=== PATIENT | female | born 1970 | race Hispanic/Latino ===

== ENCOUNTER 2017-08-11 08:57 | Emergency (ER) | payer BC, OTHER ==
[2017-08-11 09:14] VITALS: BMI 34.0
[2017-08-11 09:16] VITALS: RESP 18; TEMP 98.9
--- NOTE | 2017-08-11 10:09 | ED PDOC ---
Arrival/HPI - General Historian: Patient - General Chief Complaint: Hip Pain Time Seen by Provider: 08/11/17 10:03 - History of Present Illness Narrative History of Present Illness (Text): 08/11/17 10:05 47 y/o female, no significant pmh, nkda, c/o bilateral hip and heel pain x 10 days with no fall or trauma. Pt. stated that she went to hiking a lot with no recent fall or trauma, has bilateral hip and heel pain x 10 days which she was see in the urgent care about 7 days ago with negative lymes Igg/igm and negative cbc/cmp, no radiology test performed for her pain, stated that the pain has not completely resolved but not prescribe with any pain medication, stated that she has no upper extremity pain, no back pain, no fever or chills, no generalized myalgia, no palpitation, no urinary or bowel incontinence or retention, no rash, no dizziness, no change in energy level, no change in appetize, no other medical or psychological complaints, no coughing either. ( Irwin Genao) Past Medical History - Provider Review Nursing Documentation Reviewed: Yes - Infectious Disease Hx of Infectious Diseases: None - Tetanus Immunization Tetanus Immunization: Up to Date - Psychiatric Hx Depression: No Hx Emotional Abuse: No Hx Physical Abuse: No Hx Substance Use: No - Surgical History Hx Orthopedic Surgery: Yes (r heel spur) - Anesthesia Hx Anesthesia: Yes Hx Anesthesia Reactions: No Hx Malignant Hyperthermia: No - Suicidal Assessment Feels Threatened In Home Enviroment: No Family/Social History - Physician Review Nursing Documentation Reviewed: Yes Family/Social History: Unknown Family HX Smoking Status: Never Smoked Hx Alcohol Use: Yes Frequency of alcohol use: Socially Hx Substance Use: No Hx Substance Use Treatment: No Allergies/Home Meds Allergies/Adverse Reactions: Allergies No Known Allergies Allergy (Verified 05/16/13 08:49) Home Medications: Home Meds Medication Instructions Recorded Confirmed Alprazolam [Xanax] 1 tab PO BID PRN 08/11/17 08/11/17 Mefenamic Acid [Ponstel] 1 tab PO DAILY PRN 08/11/17 08/11/17 Review of Systems - Review of Systems Constitutional: absent: Fatigue, Fevers Eyes: absent: Vision Changes ENT: absent: Hearing Changes Respiratory: absent: SOB, Cough Cardiovascular: absent: Chest Pain Gastrointestinal: absent: Abdominal Pain, Nausea, Vomiting Musculoskeletal: Arthralgias, Myalgias. absent: Back Pain, Neck Pain, Joint Swelling Skin: absent: Rash, Pruritis Psychiatric: absent: Anxiety, Depression, Suicidal Ideation Physical Exam Vital Signs Reviewed: Yes Temperature: Afebrile Blood Pressure: Normal Pulse: Regular Respiratory Rate: Normal Appearance: Positive for: Well-Appearing, Non-Toxic, Comfortable Pain Distress: Moderate Mental Status: Positive for: Alert and Oriented X 3 - Systems Exam Head: Present: Atraumatic, Normocephalic Pupils: Present: PERRL Extroacular Muscles: Present: EOMI Conjunctiva: Present: Normal Mouth: Present: Moist Mucous Membranes Neck: Present: Normal Range of Motion Respiratory/Chest: Present: Clear to Auscultation, Good Air Exchange. No: Respiratory Distress, Accessory Muscle Use Cardiovascular: Present: Regular Rate and Rhythm, Normal S1, S2. No: Murmurs Abdomen: No: Tenderness, Distention, Peritoneal Signs Back: Present: Normal Inspection Upper Extremity: Present: Normal Inspection. No: Cyanosis, Edema Lower Extremity: Present: Normal Inspection, NORMAL PULSES, Neurovascularly Intact, Capillary Refill < 2 s, Other (Bilateralo lower extremities: +ttp on the plantar heel aspect on the bilateral feet region, negative loja and sharlene signs, no hip tenderenss or swelling but pain upon lateral movements bilaterally and extension, FROM without limitation, sensation intact, motor 5/5 , +DPPT pulses, no rash and no visible bullseye or target signs, neurovascular intact. ). No: Edema, CALF TENDERNESS, Swelling Neurological: Present: GCS=15, CN II-XII Intact, Speech Normal, Motor Func Grossly Intact, Gait Normal, Memory Normal Skin: Present: Warm, Dry, Normal Color. No: Rashes ( no rash and no visible bullseye or target signs) Psychiatric: Present: Alert, Oriented x 3, Normal Insight, Normal Concentration Vital Signs Temp Pulse Resp BP Pulse Ox 08/11/17 13:48 77 18 126/71 100 08/11/17 09:15 98.9 F 92 H 18 117/83 99 Medical Decision Making - RAD Interpretation Night Shift: Radiologist ED Course and Treatment: 08/11/17 10:09 -labs/ck/lymes igg/igm -bilateral hip/feet xrays -bilateral lower extremities venuous doppler -IVF/toradol/valium -observe and reassess 08/11/17 12:16 -Urine hcg is negative -Labs are non-significant -Bilateral feet xrays: +bilateral calcaneal spur, no fracture or dislocation. -Bilateral hips/pelvis xray: no fracture or dislocation, Mild degenerative changes both hips. -Bilateral lower extremities: as per preliminary, no acute DVT -Pt. feels MUCH BETTER NOW, request to be discharged home, will discharge home. -I checked the [facility] report, she on the benzo but not on any pain medication and her benzo is out by 08/06/2017 with no new prescription, no signs of drug abuse , limited relief with nsaids and tylenol, will give couple days of percocet for acute pain controlled and will see her own pedal assembler. -Pt. is not a crutch candidate -Discharge home with chrissy wrap, cane, percocet for severe pain, motrin for mild to moderate pain, follow up with your own pmd and pedal assembler within 2 days, return to the ER for any new or worsening signs or symptoms, follow up the lymes test as well in 3-4 days. (Irwin Genao) - Lab Interpretations Lab Results: 08/11/17 10:45 08/11/17 10:45 Lab Results 08/11/17 10:45: WBC 7.9, RBC 4.25, Hgb 12.3, Hct 36.5, MCV 85.9, MCH 28.9, MCHC 33.7, RDW 13.3, Plt Count 242, MPV 10.4, Gran % 63.0, Lymph % (Auto) 26.5, Lawrence % (Auto) 7.7 H, Eos % (Auto) 2.5, Baso % (Auto) 0.3, Gran # 4.98, Lymph # (Auto ) 2.1, Lawrence # (Auto) 0.6, Eos # (Auto) 0.2, Baso # (Auto) 0.02 08/11/17 10:45: Sodium 143, Potassium 4.2, Chloride 104, Carbon Dioxide 25, Anion Gap 18, BUN 11, Creatinine 0.7, Est GFR ( Amer) > 60, Est GFR (Non- Af Amer) > 60, Random Glucose 103, Calcium 9.6, Total Bilirubin 0.6, AST 22, ALT 24, Alkaline Phosphatase 55, Total Creatine Kinase 76, Total Protein 7.7, Albumin 4.3, Globulin 3.4, Albumin/Globulin Ratio 1.3 - RAD Interpretation Radiology Orders: 08/11/17 10:03 FOOT 3 VIEWS BI [RAD] Stat Hip Bilateral [HIP MIN 3V W/ PELVIS AVERY] [RAD] Stat 08/11/17 10:10 DUPLEX LOWER EXTRM VEIN BILAT [US] Stat Bilateral feet: PROCEDURE: Bilateral Feet Radiographs. HISTORY: bilateral feet pain COMPARISON: None. FINDINGS: BONES: Right Foot: Normal. No fracture. Left Foot: Normal. No fracture. Left plantar calcaneal spur JOINTS: Right Foot: Normal. No osteoarthritis. Left Foot: Normal. No osteoarthritis. SOFT TISSUES: Right Foot: Normal. Left Foot: Normal. OTHER FINDINGS: None. IMPRESSION: Left plantar calcaneal spur Bilateral hips/pelvis: PROCEDURE: HISTORY: bilateral pain COMPARISON: None TECHNIQUE: AP view of the pelvis and applicable frog leg views obtained. FINDINGS: Bilateral mild superolateral hip joint space narrowing with mild bilateral superolateral acetabular spurring present. No fracture or dislocation. No lytic lesion. Bilateral bony excrescence each lateral iliac - SI joints and pubic symphysis within normal limits. IMPRESSION: Mild degenerative changes both hips. Other findings -as above. Bilateral lower extremities: as per preliminary report, no acute DVT (Irwin Genao ) - Medication Orders Current Medication Orders: Discontinued Medications Diazepam (Valium) 5 mg PO ONCE ONE PRN Reason: Protocol Stop: 08/11/17 10:04 Last Admin: 08/11/17 11:00 Dose: 5 mg Sodium Chloride (Sodium Chloride 0.9%) 1,000 mls @ 999 mls/hr IV .Q1H1M STA Stop: 08/11/17 11:03 Last Admin: 08/11/17 11:01 Dose: 999 mls/hr eMAR Start Stop Document 08/11/17 11:01 EQ (Rec: 08/11/17 11:01 EQ [id number]) Intravenous Solution Start Date 08/11/17 Start Time 11:01 Ketorolac Tromethamine (Toradol) 30 mg IVP STAT STA Stop: 08/11/17 10:04 Last Admin: 08/11/17 11:01 Dose: 30 mg MAR Pain Assessment Document 08/11/17 11:01 EQ (Rec: 08/11/17 11:01 EQ [id number]) Pain Reassessment Is this a pain reassessment? No Sleep Is patient sleeping during reassessment? No Presence of Pain Presence of Pain Yes IVP Administration Document 08/11/17 11:01 EQ (Rec: 08/11/17 11:01 EQ [id number]) Charges for Administration # of IVP Administrations 1 - PA / ASSIGNER / Resident Statement MD/DO has reviewed & agrees with the documentation as recorded. Disposition/Present on Arrival - Present on Arrival Any Indicators Present on Arrival: No History of DVT/PE: No History of Uncontrolled Diabetes: No Urinary Catheter: No History of Decub. Ulcer: No History Surgical Site Infection Following: None - Disposition Have Diagnosis and Disposition been Completed?: Yes Disposition Time: 10:10 Patient Plan: Discharge - Disposition Diagnosis: Calcaneal spur of both feet, Tendonitis Disposition: HOME/ ROUTINE Condition: IMPROVED Discharge Instructions (ExitCare): Tendonitis (DC), Heel Spurs (DC) Additional Instructions: Discharge home with chrissy wrap, cane, percocet for severe pain, motrin for mild to moderate pain, follow up with your own pmd and pedal assembler within 2 days, return to the ER for any new or worsening signs or symptoms, follow up the lymes test as well in 3-4 days. Prescriptions: Ibuprofen [Motrin Tab] 600 mg PO QID PRN #30 tab PRN Reason: Other oxyCODONE/Acetaminophen [Percocet 5/325 mg Tab] 1 tab PO QID PRN #12 tab PRN Reason: Other Referrals: Les Boyer MD [Primary Care Provider] - Follow up with primary Jerry Rosado DPM [Staff Provider] - Follow up with primary Forms: SCHOOL NOTE, WORK NOTE
[2017-08-11] MEDS: Sodium Chloride 0.9% 1,000 ML IV STA (11:01)
[2017-08-11 11:09] LABS: BASO # 0.02 K/mm3 (0.0-2.0); BASO % 0.3 % (0.0-3.0); EOS # 0.2 (0.0-0.7); EOS % 2.5 % (1.5-5.0); GRAN # 4.98 (1.4-6.5); HEMOGLOBIN 12.3 g/dL (12.0-16.0); LYMPH # 2.1 (1.2-3.4); LYMPH % 26.5 % (22.0-35.0); MEAN CELL VOLUME 85.9 fl (80.0-105.0); MEAN CORPUSCULAR HEMOGLOBIN 28.9 pg (25.0-35.0); MEAN CORPUSCULAR HGB CONC 33.7 g/dl (31.0-37.0); MEAN PLATELET VOLUME 10.4 fl (7.0-11.0); MONO # 0.6 (0.1-0.6); MONO % 7.7 % (1.0-6.0); RBC 4.25 10^6/uL (3.5-6.1); RED CELL DISTRIBUTION WIDTH 13.3 % (11.5-14.5); WHITE BLOOD COUNT 7.9 10^3/ul (4.5-11.0)
[2017-08-11 11:26] LABS: ALB/GLOB RATIO 1.3 (1.1-1.8); ALBUMIN 4.3 g/dL (3.0-4.8); ALT/SGPT 24 U/L (7-56); AST/SGOT 22 U/L (14-36); BLOOD UREA NITROGEN 11 mg/dL (7-21); CALCIUM 9.6 mg/dL (8.4-10.5); GFR AFRICAN-AMERICAN > 60; GFR NON-AFRICAN AMERICAN > 60
--- NOTE | 2017-08-11 12:35 | RAD ---
PROCEDURE: HISTORY: bilateral pain COMPARISON: None TECHNIQUE: AP view of the pelvis and applicable frog leg views obtained. FINDINGS: Bilateral mild superolateral hip joint space narrowing with mild bilateral superolateral acetabular spurring present. No fracture or dislocation. No lytic lesion. Bilateral bony excrescence each lateral iliac - SI joints and pubic symphysis within normal limits. IMPRESSION: Mild degenerative changes both hips. Other findings -as above.
[2017-08-11 13:50] VITALS: BP 126/71; PULSE 77; O2SAT 100
--- NOTE | 2017-08-11 13:54 | RAD ---
PROCEDURE: Bilateral Feet Radiographs. HISTORY: bilateral feet pain COMPARISON: None. FINDINGS: BONES: Right Foot: Normal. No fracture. Left Foot: Normal. No fracture. Left plantar calcaneal spur JOINTS: Right Foot: Normal. No osteoarthritis. Left Foot: Normal. No osteoarthritis. SOFT TISSUES: Right Foot: Normal. Left Foot: Normal. OTHER FINDINGS: None. IMPRESSION: Left plantar calcaneal spur
--- NOTE | 2017-08-11 20:02 | US ---
HISTORY: Leg pain and swelling. Evaluate for DVT PHYSICIAN(S): Florentin Chang MD. TECHNIQUE: Duplex sonography and color-flow Doppler with graded compression were used to evaluate the deep venous systems of both lower extremities. FINDINGS: The visualized deep venous systems of both lower extremities are sonographically normal and compressible. Normal wave forms and augmentation are seen. There is no sonographic evidence for deep venous thrombosis in the visualized segments of both lower extremities. IMPRESSION: No sonographic evidence for deep venous thrombosis in the visualized segments of both lower extremities.
[2017-08-13 10:41] LABS: LYME IGM NEGATIVE (NEGATIVE)
[2017-08-13 12:11] LABS: LYME IGG NEGATIVE (NEGATIVE)
== END 2017-08-11 13:20 | disposition home or self-care (01) ==
LOC: ED 08:57
DX: M77.32 Calcaneal spur, left foot (principal); M77.31 Calcaneal spur, right foot; M77.8 Other enthesopathies, not elsewhere classified
CPT/HCPCS: 73522; 73630; 80053; 82550; 85025; 86618; 93970; 96374; 99284; J1885; J7030